=== PATIENT | female | born 1960 | race Caucasian/White ===

== ENCOUNTER 2018-03-13 09:13 | Emergency (ER) | payer SELFPAY ==
[~2018-03-13] VITALS: Ht 170.2 cm; Wt 68.0 kg
[2018-03-13 09:13] VITALS: BP 134/73
[2018-03-13] MEDS ORDERED: Tetanus/Diptheria/Pertussis Vaccine 0.5ml Syr IM ONE (09:15)
[2018-03-13] MEDS ORDERED: Acetaminophen 500mg (ES) tab ORAL ONE (09:30)
--- NOTE | 2018-03-13 10:08 | Diagnostic Imaging Report ---
INDICATION: Altered mental status TECHNIQUE: Multiple, contiguous 2.5 mm axial cuts of the brain are obtained from the posterior fossa to the cranial vault. Sagittal and coronal reformatted images provided. No IV contrast is administered. One or more of the following dose reduction techniques were used: automated exposure control, adjustment of the mA and/or kV according to patient size, use of iterative reconstruction technique. COMPARISON: None FINDINGS: No intracranial hemorrhage, abnormal intra- or extra-axial collections or parenchymal lesions are seen. The shape and configuration of the cortical sulci, basal cisterns and ventricles are within normal limits. The thompson-white differentiation is preserved. No evidence of mass effect, midline shift, or edema. The osseous structures are unremarkable. The visualized portions of the paranasal sinuses are clear. IMPRESSION: Normal non-contrast CT scan of the head. CTDI: 70.38 mGy DLP: 1414.57 mGycm
--- NOTE | 2018-03-13 10:11 | Diagnostic Imaging Report ---
INDICATION: Altered mental status TECHNIQUE: Multiple, contiguous 2.5 mm axial cuts of the cervical spine are obtained from the skull base to the thoracic inlet. Sagittal and coronal images provided. No IV contrast is administered. One or more of the following dose reduction techniques were used: automated exposure control, adjustment of the mA and/or kV according to patient size, use of iterative reconstruction technique. COMPARISON: None FINDINGS: No fracture or subluxations are noted. The vertebral body heights and alignment are preserved. No prevertebral soft tissue swelling. Anterior osteophytes at the C5-C6 and C6-C7 levels. Note is made of multilevel cervical spondylosis with varying degrees of central canal and foramina stenoses. IMPRESSION: 1. No cervical fractures. 2. Cervical spondylosis with varying degrees of central canal and foramina stenoses. CTDI: 13.53 mGy DLP: 288.2 mGycm
[2018-03-13] MEDS ORDERED: ZyPREXA Zydis 10mg tab ORAL ONE (10:15)
[2018-03-13 10:59] LABS: HEMATOCRIT 33.4 % (37.0-47.0); HEMOGLOBIN 11.6 G/DL (12.0-16.0); MEAN CORPUSCULAR VOLUME 97 FL (80-99); PLATELET COUNT 211 K/UL (150-450); RED BLOOD COUNT 3.45 M/UL (4.20-5.40); RED CELL DISTRIBUTION WIDTH 11.6 % (11.6-14.8); WHITE BLOOD COUNT 12.8 K/UL (4.8-10.8)
[2018-03-13 11:09] LABS: ANION GAP 9 mmol/L (5-15); BLOOD UREA NITROGEN 21 mg/dL (7-18); CARBON DIOXIDE 27 MMOL/L (21-32); CHLORIDE 105 MMOL/L (98-107); POTASSIUM 3.9 MMOL/L (3.5-5.1); SODIUM 141 MMOL/L (136-145)
[2018-03-13 11:13] VITALS: BP 125/71
[2018-03-13 11:14] LABS: ALANINE AMINOTRANSFERASE 32 U/L (12-78); ALBUMIN 3.4 G/DL (3.4-5.0); ALKALINE PHOSPHATASE 41 U/L (46-116); ASPARTATE AMINO TRANSFERASE 38 U/L (15-37); BILIRUBIN,TOTAL 0.2 MG/DL (0.2-1.0)
--- NOTE | 2018-03-13 12:01 | Diagnostic Imaging Report ---
Lumbar Spine, Single Frontal view INDICATION: Pain COMPARISON: None FINDINGS: Single frontal view of the lumbar spine are obtained. Mild atherosclerosis at that L3-L4. Facet arthropathies at L4-L5 and L5-S1. Alignment is anatomic. The paraspinal soft tissues are within normal limits. IMPRESSION: Limited as only single view. Degenerative findings as outlined above.
[2018-03-13] MEDS ORDERED: Haloperidol 5mg/ml Inj IM ONE (12:30)
[2018-03-13] MEDS ORDERED: Norco 5mg/325mg tab ORAL ONE (13:00)
[2018-03-13 13:13] VITALS: BP 129/71
[2018-03-13] MEDS ORDERED: Ketorolac 60mg Inj IM ONE (13:30)
[2018-03-13 13:59] VITALS: BP 129/70
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
== END 2018-03-13 13:59 | disposition home or self-care (01) ==
LOC: EDBD 09:13 → EMR 09:30
DX: S00.81XA Abrasion of other part of head, initial encounter (principal); S80.819A Abrasion, unspecified lower leg, initial encounter; G95.19 Other vascular myelopathies; M47.812 Spondylosis without myelopathy or radiculopathy, cervical region; Z23 Encounter for immunization; Y04.8XXA Assault by other bodily force, initial encounter
CPT/HCPCS: 36415; 70450; 72020; 72125; 80053; 80307; 85007; 85025; 90471; 90715; 96372; 99283; G0480; J1630; 80329